=== PATIENT | male | born 1975 | race Caucasian/White ===

== ENCOUNTER 2017-02-15 13:22 | Emergency (ER) | payer SELFPAY ==
[~2017-02-15] VITALS: Ht 190.5 cm; Wt 173.0 kg
[2017-02-15] MEDS ORDERED: IBUPROFEN 800MG TABLET PO ONE (18:45)
[2017-02-15] MEDS ORDERED: LIDOCAINE HCL 1% 20ML VIAL (Pyxis) INJ MC ONE (20:00)
[2017-02-15] MEDS ORDERED: HYDROCODONE/ACETAMINOPHEN 10/325MG TABLET PO ONE (20:00)
[2017-02-15 20:57] VITALS: BP 133/76
== END 2017-02-15 21:02 | disposition home or self-care (01) ==
LOC: ER 14:10
DX: S63.286A Dislocation of proximal interphalangeal joint of right little finger, initial encounter (principal); S63.284A Dislocation of proximal interphalangeal joint of right ring finger, initial encounter; F17.200 Nicotine dependence, unspecified, uncomplicated; V19.9XXA Pedal cyclist (driver) (passenger) injured in unspecified traffic accident, initial encounter; Y92.89 Other specified places as the place of occurrence of the external cause; Y99.8 Other external cause status; Y93.55 Activity, bike riding; Z98.890 Other specified postprocedural states
CPT/HCPCS: 26770; 73130; 99284; J3490